=== PATIENT | male | born 1965 | race Caucasian/White ===

== ENCOUNTER 2019-12-14 07:44 | Outpatient (REF) | payer MEDICARE, MEDICAID, SELFPAY ==
[2019-12-14 12:05] LABS: Cholesterol 171 mg/dL; HDL Cholesterol 42 mg/dL; LDL Cholesterol Calculated 113 mg/dl; Triglycerides 83 mg/dL
== END 2019-12-14 07:45 | disposition home or self-care (01) ==
LOC: HO.HMGCLDS 07:44
PROVIDERS: PCP Internal Medicine; Visit Provider Internal Medicine
DX: E78.00 Pure hypercholesterolemia, unspecified (principal); Z00.01 Encounter for general adult medical examination with abnormal findings
CPT/HCPCS: 80061

== ENCOUNTER 2021-02-08 18:47 | Outpatient (REF) | payer MEDICARE, MEDICAID, SELFPAY ==
[2021-02-08 19:42] LABS: Influenza A PCR NEGATIVE (Negative); Influenza B PCR NEGATIVE (Negative); Resp Syncy Virus RNA Qual PCR NEGATIVE (Negative); SARS COV2 PCR INHOUSE POSITIVE (Negative)
== END 2021-02-08 18:48 | disposition home or self-care (01) ==
LOC: HO.LNP 18:47
PROVIDERS: Visit Provider Internal Medicine
DX: Z20.822 Contact with and (suspected) exposure to COVID-19 (principal); R43.9 Unspecified disturbances of smell and taste
CPT/HCPCS: 0241U

== ENCOUNTER 2022-02-24 08:15 | Outpatient (REF) | payer MEDICARE, MEDICAID, SELFPAY ==
[2022-02-24 12:19] LABS: Alanine Aminotransferase 15 U/L (0-40); Aspartate Amino Transferase 15 U/L (5-37); Cholesterol 207 mg/dL; Glucose Fasting 87 mg/dL (60-99); HDL Cholesterol 33 mg/dL; LDL Cholesterol Calculated 152 mg/dl; PSA,Total (Free>4and<10) 0.62 ng/mL (0.00-4.00); Triglycerides 114 mg/dL
== END 2022-02-24 08:16 | disposition home or self-care (01) ==
LOC: HO.HMGCLDS 08:15
PROVIDERS: PCP Internal Medicine; Visit Provider Internal Medicine
DX: Z00.01 Encounter for general adult medical examination with abnormal findings (principal); Z12.5 Encounter for screening for malignant neoplasm of prostate; F20.1 Disorganized schizophrenia; B35.1 Tinea unguium
CPT/HCPCS: 36415; 80061; 82947; 84153; 84450; 84460

== ENCOUNTER 2022-08-27 08:27 | Outpatient (REF) | payer MEDICARE, MEDICAID, SELFPAY ==
[2022-08-27 12:17] LABS: Alanine Aminotransferase 15 U/L (0-40); Aspartate Amino Transferase 19 U/L (5-37); Cholesterol 211 mg/dL; Glucose Fasting 89 mg/dL (60-99); HDL Cholesterol 41 mg/dL; LDL Cholesterol Calculated 150 mg/dl; Triglycerides 103 mg/dL; Vitamin D 25-OH Total 67.7 ng/mL (>30)
== END 2022-08-27 08:28 | disposition home or self-care (01) ==
LOC: HO.HMGCLDS 08:27
PROVIDERS: PCP Internal Medicine; Visit Provider Internal Medicine
DX: Z00.01 Encounter for general adult medical examination with abnormal findings (principal); E78.5 Hyperlipidemia, unspecified; Z71.89 Other specified counseling
CPT/HCPCS: 36415; 80061; 82306; 82947; 84450; 84460

== ENCOUNTER 2022-09-05 06:40 | Day surgery (SDC) | payer MEDICARE, MEDICAID, SELFPAY ==
--- NOTE | 2022-09-04 09:59 | HO.ANESPROP2 ---
HPI - Anesthesia Eval Consult details Narrative: 57yo M for Colonoscopy PMFSH Active Problems Active Problems: All Active Problems (Updated 02/28/22 @ 10:42 by Chantell Meyer MD) Dyslipidemia (Acute) Fungal toenail infection (Acute) Schizophrenia, disorganized type (Acute) Past Medical History Medical History Dyslipidemia Fungal toenail infection Schizophrenia, disorganized type Family History Family History Mother Diabetes mellitus HTN (hypertension) Sister Thyroid disorder Surgical History Surgical History No pertinent past surgical history Social History Social History Housing: House Alcohol intake: never Patient Tobacco Use Status: Never used Tobacco e-Cigarette/Vaping Use: Never Used service: No Current occupational status: employed Cognitive needs: No Hearing needs: No Vision needs: No Meds Allergies Allergy/AdvReac Type Severity Reaction Status Date / Time No Known Allergies Allergy Verified 09/01/22 03:36 [No Known Allergies*] Home Medications Medication Instructions Recorded Confirmed Last Taken Type clonidine HCl 0.1 mg tablet mg PO 12/14/19 05/13/20 Unknown History risperidone 1 mg tablet mg PO 12/14/19 05/13/20 Unknown History Exam Exam Date and Time: September 04, 2022 5790 Assessment and Plan Assessment Anesthesia Assessment: Chart Reviewed
[2022-09-05 07:10] VITALS: BP 100/66; PULSE 77; RESP 16; TEMP 36.9; O2SAT 98; BMI 22.9
[2022-09-05] MEDS: Lactated Ringers 1,000 ML 100 ML IVCONT (08:10)
--- NOTE | 2022-09-05 08:14 | P.CONAN_ITS ---
[facility] Active Problems Active Problems: All Active Problems (Updated 02/28/22 @ 10:42 by Chantell Meyer MD) Dyslipidemia (Acute) Fungal toenail infection (Acute) Schizophrenia, disorganized type (Acute) Past Medical History Medical History Dyslipidemia Fungal toenail infection Schizophrenia, disorganized type Family History Family History Mother Diabetes mellitus HTN (hypertension) Sister Thyroid disorder Surgical History Surgical History (Updated 09/05/22 @ 07:23 by Kaylen Buchanan) H/O colonoscopy No pertinent past surgical history History of Problems with Anesthesia: No Social History Social History Housing: House Alcohol intake: never Patient Tobacco Use Status: Never used Tobacco e-Cigarette/Vaping Use: Never Used Use of substances other than those prescribed or required for medical reasons: No Are you DNR?: No Advance Directives: No Advance Directives Information Provided: Yes service: No Current occupational status: employed Cognitive needs: No Hearing needs: No Vision needs: No Meds Allergies Allergy/AdvReac Type Severity Reaction Status Date / Time No Known Allergies Allergy Verified 09/05/22 07:23 [No Known Allergies*] Active Medications: Current Medications Lactated Ringer's (Lr) 1,000 mls @ 100 mls/hr IVCONT .Q10H BATOOL Last Admin: 09/05/22 08:10 Dose: 100 mls/hr Ondansetron HCl (Ondansetron Hcl 4 Mg/2 Ml Vial) 4 mg IVPUSH ONCE PRN PRN Reason: Nausea and Vomiting Home Medications Medication Instructions Recorded Confirmed Last Taken Type clonidine HCl 0.1 mg tablet mg PO 12/14/19 05/13/20 09/05/22 History risperidone 1 mg tablet mg PO 12/14/19 05/13/20 09/05/22 History Exam Exam Date and Time: September 05, 2022 0814 Height,Weight and Vital Signs: Height 5 ft 7 in Weight 66.224 kg Last Vital Signs Temp 98.4 F 09/05/22 07:10 Pulse 77 09/05/22 07:10 Resp 16 09/05/22 07:10 BP 100/66 06/30/23 07:10 Pulse Ox 98 09/05/22 07:10 O2 Del Method Room Air 09/05/22 07:10 Airway Mallampati Class: II TM Dist: >3cm Neck ROM: Full Denture: Upper and Lower Heart: rrr Lungs: clear Assessment and Plan Final Anesthetic Review History of Problems with Anesthesia: No NPO: Yes ASA Class: II Final Preanesthetic Review: No Changes in Pt Med Stat, Meds/Allgs Chart Reviewed, Consent Obtained/Reviewed and Anes Risks/Benef Reviewed Patient Risk: Low Procedure Risk: Low Anesthetic Plan Anesthetic Plan: MAC: Disposition: Standard PACU
--- NOTE | 2022-09-05 08:18 | MHC.SHP ---
Pre-Procedural Eval Section A Date of Service: 09/05/22 Section B Chief Complaint: Screening Details of Present Illness: see H&P no changes Relevant Family History (Specify if Yes): No Relevant Social History: None Present Medications: None Medical History: No relevant PMH History of Previous Operations: No relevant previous surgery Allergies: Allergies Allergy/AdvReac Type Severity Reaction Status Date / Time No Known Allergies Allergy Verified 09/05/22 07:23 [No Known Allergies*] Review of Systems Sugical H&P ROS: Negative: Constitution, Cardiovascular, Respiratory, Neurological, Psychiatric, Hem-Onc, Allergic/Immunologic, Gastrointestinal, Genitourinary, Musculoskeletal, Integumentary, Endocrine and Eyes/Ears/Nose/Throat Exam Surgical H&P Exam: Normal: HEENT, Normal: Heart, Normal: Lungs, Normal: Extremities, Normal: Abdomen, Normal: Skin and Normal: Neurological Plan Diagnosis/Plan: Unchanged I have reviewed the history and physical and performed a pertinent physical examination on my patient. No changes have occurred unless specified. Time Spent With Patient Time: Total time managing care of this patient today ____ minutes.
--- NOTE | 2022-09-05 08:26 | PC.NURSE ---
Legal guardian/HCP/brother Ryan Chua at bedside. HCP on file. Patient alert to name and some health history. Unable to state birthday or what he is getting done today. Hx of schizophrenia and mental disability. Ryan to sign all consents for patient.
[2022-09-05 08:52] VITALS: BP 108/71; PULSE 69; RESP 16; TEMP 36.6; O2SAT 97
--- NOTE | 2022-09-05 08:56 | PM.OP ---
Brief Operative Note Date of Service: 09/05/22 Pre-op diagnosis: screening Procedure: colonoscopy Surgeon: Floyd Au Anesthesia: MAC Was an Nerve Specialist used for this Procedure?: No Estimated blood loss (mL): 0 Pathology: none sent Condition: stable Disposition: PACU
[2022-09-05 09:08] VITALS: BP 125/72; PULSE 70; RESP 16; TEMP 36.6; O2SAT 99
--- NOTE | 2022-09-05 09:15 | OP_ITS ---
DATE OF SERVICE: 09/05/2022 SURGEON: Floyd Au MD INDICATIONS: Colon cancer screening. PREOPERATIVE DIAGNOSIS: POSTOPERATIVE DIAGNOSIS: PROCEDURE PERFORMED: Colonoscopy to 70 cm. ESTIMATED BLOOD LOSS: COMPLICATIONS: ANESTHESIA: Monitored anesthesia care. ASSISTANTS: SPECIMENS: DESCRIPTION OF PROCEDURE: A history and physical were performed. The risks and benefits of the procedure were explained to the patient and his guardian. Informed consent was obtained. The patient was placed in the left lateral decubitus position. A digital rectal examination was performed and was found to be normal. The Olympus pediatric video colonoscope was introduced into the rectum. The scope could be advanced to 70 cm but no further due to a poor prep. Examination was performed and the scope was removed. He tolerated the procedure well and was taken to recovery in stable condition. FINDINGS: There was a large amount of undigested food, retained stool, which was both solid and liquid in the colon. Examination was nondiagnostic. The scope was removed. No polyps were seen. Retroflexed examination showed some internal hemorrhoids. IMPRESSION: Nondiagnostic procedure. RECOMMENDATIONS: 1. Followup as needed. 2. Repeat colonoscopy with 2-day prep is recommended. This will be discussed with the patient and his guardian. MD FAUSTO Cornelius/KATIEL / [id number]
== END 2022-09-05 09:58 | disposition home or self-care (01) ==
PROVIDERS: PCP Internal Medicine; Visit Provider Internal Medicine Gastroenterology
PROC: 0DJD8ZZ Inspection of Lower Intestinal Tract, Via Natural or Artificial Opening Endoscopic (ICD-10-PCS; CPT 45378; principal; 2022-09-05 08:10)
DX: Z12.11 Encounter for screening for malignant neoplasm of colon (principal); K64.8 Other hemorrhoids; F71 Moderate intellectual disabilities; F20.9 Schizophrenia, unspecified; E78.5 Hyperlipidemia, unspecified; Z79.899 Other long term (current) drug therapy
CPT/HCPCS: G0104

== ENCOUNTER 2023-03-05 13:14 | Outpatient (AMB) | payer MEDICARE, MEDICAID, SELFPAY ==
[2023-03-05 13:23] VITALS: BP 108/60; PULSE 63; O2SAT 99; BMI 23.5
--- NOTE | 2023-03-05 13:23 | AM.OFFVISMDC ---
Intake Vital Signs 03/05/23 13:23 Height 5 ft 7 in Intake Visit Reasons: AWV [id number] Allergies No Known Allergies [No Known Allergies*] Allergy (Verified 09/05/22 07:23) PFSH Medical History Dyslipidemia Fungal toenail infection Schizophrenia, disorganized type Surgical History (Updated 09/05/22 @ 07:23 by Kaylen Buchanan) H/O colonoscopy No pertinent past surgical history Family History Mother Diabetes mellitus HTN (hypertension) Sister Thyroid disorder Social History Housing: House Alcohol intake: never Patient Tobacco Use Status: Never used Tobacco e-Cigarette/Vaping Use: Never Used service: No Current occupational status: employed Cognitive needs: No Hearing needs: No Vision needs: No Coding
--- NOTE | 2023-03-05 13:39 | MHC.PC.OV ---
Vital Signs 03/05/23 13:23 Height 5 ft 7 in Weight 150 lb 6 oz BMI 23.5 BP 108/60 Blood Pressure Location Lt brachial Position Sitting Pulse 63 Pulse Source Pulse Oximeter Pulse Oximetry (%) 99 Intake Visit Reasons: Annual PE Intake Note: Pt is here for an Annual PE Allergies No Known Allergies [No Known Allergies*] Allergy (Verified 03/05/23 14:13) Medication List - Last Reconciled 03/05/23 by Chantell Meyer MD clonidine HCl mg PO risperidone mg PO Tobacco use date assessed: 08/29/22 HPI Annual PE HPI Details 57-year-old male here today for physical exam. He has schizophrenia currently being followed by psych, stable and controlled on present medications. He is up-to-date with his screening colonoscopy however his last 1 had a poor prep, as per GI, to repeat again in 2024. 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 Has been feeling well, with no complaints at present time, very happy with his current job. [facility] [place] Medical History (Updated 03/05/23 @ 14:22 by Chantell Meyer MD) Impacted cerumen of both ears Dyslipidemia Fungal toenail infection Schizophrenia, disorganized type Surgical History H/O colonoscopy No pertinent past surgical history Family History Mother Diabetes mellitus HTN (hypertension) Sister Thyroid disorder Social History Housing: House Alcohol intake: never Patient Tobacco Use Status: Never used Tobacco e-Cigarette/Vaping Use: Never Used service: No Current occupational status: employed Cognitive needs: No Hearing needs: No Vision needs: No Questionnaire PHQ-9 Over the last 2 weeks, how often have you been bothered by any of the following problems? 1. Little interest or pleasure in doing things: not at all 2. Feeling down, depressed, or hopeless: not at all 3. Trouble falling or staying asleep, or sleeping too much: not at all 4. Feeling tired or having little energy: not at all 5. Poor appetite or overeating: not at all 6. Feeling bad about yourself - or that you are a failure or have let yourself or your family down: not at all 7. Trouble concentrating on things, such as reading the newspaper or watching television: not at all 8. Moving or speaking so slowly that other people could have noticed. Or the opposite - being so fidgety or restless that you have been moving around a lot more than usual: not at all 9. Thoughts that you would be better off or of hurting yourself in some way: not at all Total score: 0 Depression Screening Interpretation: Negative Depression Screening Done: Yes 78692 - PHQ-9 Billing: Yes Source: Developed by Drs. Pablo Garcia, Lynn Holliday, Jorge Raya and colleagues, with an educational willa from [employer]. Thrive Questionnaire Date Thrive assessed: 03/05/23 I am a: Patient What is your living situation today?: I have a steady place to live Within the past 12 months, did the food you bought not last and you didn't have the money to get more?: Never true Within the past 12 months, did you worry whether your food would run out before you got money to buy more?: Never true Do you have trouble paying for medicines?: No Do you have trouble getting transportation to medical appointments?: No Do you have trouble paying your heating and electricity bill?: No Do you have trouble taking care of your child, family member or friend?: No Do you have trouble with day-to-day activities such as bathing, preparing meals, shopping, managing finances, etc.?: No Are you currently unemployed and looking for a job?: No Are you interested in more education?: No AUDIT C Alcohol Use Questionnaire (AUDIT-C) 1. How often do you have a drink containing alcohol?: Never Total Score: 0 MARY KATE-7 AMB Questionnaire MARY KATE-7 Date MARY KATE - 7 assessed: 03/05/23 Feeling nervous, anxious, or on edge: 0 = Not at all Not being able to stop or control worryin = Not at all Worrying too much about different things: 0 = Not at all Trouble relaxin = Not at all Being so restless that it is hard to sit still: 0 = Not at all Becoming easily annoyed or irritable: 0 = Not at all Feeling afraid as if something awful might happen: 0 = Not at all Total MARY KATE-7 score (0-4 normal; 5-9 mild; 10-14 moderate; 15-21 severe): 0 Source: Developed by Drs. Pablo Garcia, Lynn Holliday, Jorge Raya and colleagues, with an educational willa from [employer]. MARY KATE-7 Assessment Billing MARY KATE-7 Assessment Tool: MARY KATE-7 Assessment 80047 Review of Systems Const Denies body aches, Denies fatigue, Denies fever(s), Denies headache(s) and Denies weakness Eyes Denies change in vision, Denies eye discharge and Denies itchy eyes ENT Denies dizziness, Denies headache(s), Denies nasal congestion, Denies nasal discharge and Denies sore throat Card Denies chest pain, Denies lightheadedness, Denies palpitations and Denies dyspnea Resp Denies chest congestion, Denies cough, Denies dyspnea and Denies wheezing GI Denies abdominal pain, Denies change in bowel habits and Denies heartburn Denies dysuria, Denies urinary frequency and Denies urinary urgency Musc Denies abnormal gait, Denies back pain, Denies myalgias, Denies arthralgias and Denies joint swelling Skin/Breast Denies lesions and Denies rash Neuro Reports Abnormal speech present, Denies abnormal gait, Denies dizziness, Denies headache(s) and Denies weakness Psych Reports as per HPI Endo Denies fatigue, Denies polydipsia, Denies polyuria and Denies palpitations Davi/Lymph Denies easy bruising Aller/Immun Denies itchy eyes, Denies seasonal rhinorrhea and Denies wheezing Physical exam (Primary Care) Vital Signs: Last Vital Signs Pulse 63 03/05/23 13:23 BP 108/60 03/05/23 13:23 Pulse Ox 99 03/05/23 13:23 BMI result Body Mass Index 23.5 Tobacco/Smoking Status: Tobacco use Status Tobacco use date assessed 08/29/22 03/05/23 13:40 Patient Tobacco Use Status Never used Tobacco 03/05/23 13:40 e-Cigarette/Vaping Use Never Used 03/05/23 13:40 Depression Screening Interpretation: Negative Const Other: Alert oriented x3, pleasant, in no acute distress, and accompanied by brother General: healthy appearing, comfortable and no acute distress Nutritional Appearance: average body habitus Orientation/consciousness: patient oriented x3 [facility] Head: Yes normocephalic Ears: external ears normal and Abnormal EAC present excessive cerumen bilateral General nose exam: Normal external nose present and No nasal discharge present Face and sinus: Yes face symmetric Mouth: Normal oral and palatal mucosa present and moist mucous membranes Eyes General: appearance normal, both eyes and all related structures Neck Neck: Yes full ROM, Yes no lymphadenopathy and Yes supple Thyroid: Thyroid normal Resp Effort & Inspection: normal respiratory effort and able to speak in complete sentences Auscultation: clear to auscultation bilaterally Cardio Rate: regular rate Rhythm: regular rhythm Heart sounds: S1 normal heart sound present and S2 normal heart sound present Bruits: no abdominal aortic bruits GI Inspection: Yes normal to inspection Palpation (GI): No Abdominal aortic bruit present, Soft to palpation, nontender and no masses Auscultation: normal bowel sounds General: Yes no CVA tenderness Male General Exam: Yes normal external exam Penis: normal penis and circumcised Meatus: meatus normal Scrotum: scrotum normal Testes: Testes normal, no testicular mass and no testicular tenderness Back/Spine/Pelvis Back: no CVA tenderness and No back tenderness Skin General skin exam: no rashes or lesions noted Neuro General: patient oriented x3, moves all extremities, Normal light touch and pain sensation and no focal motor deficits Cranial nerves: Yes CN's II-XII intact bilaterally Speech: Abnormal speech present slurred Gait exam (Neuro): Normal gait present Motor exam (neuro): 5/5 motor strength present throughout Extrem General: Yes full ROM, Yes no joint enlargement, Yes no clubbing, cyanosis or edema and Yes normal gait Psych Appearance: grossly normal and well kempt Mental Status: mental status grossly normal Speech and movement: Slurred speech present Affect: normal affect Attitude: cooperative Assessment and Plan Assessment & Plan (1) Annual visit for general adult medical examination with abnormal findings: Code(s): Z00.01 - Encounter for general adult medical examination with abnormal findings Plan: Will check appropriate labs. Continue regular dental visit every 6 months and regular eye exams, at least every 2 years. Declines vaccinations pain up-to-date with screening colonoscopy however last 1 had a poor prep, but as per his GI, to repeated again in 2024. (2) Dyslipidemia: Code(s): E78.5 - Hyperlipidemia, unspecified Plan: Fasting lipid panel ordered, encouraged to adhere to a low-cholesterol diet, continue doing regular exercise (3) Schizophrenia, disorganized type: Comment: followed by psychiatrist Dr. Rivas Code(s): F20.1 - Disorganized schizophrenia Plan: Currently followed by psychiatry (4) Impacted cerumen of both ears: Code(s): H61.23 - Impacted cerumen, bilateral Plan: Attended cerumen cerumen by lighted curette but unable to do so, will schedule for ear irrigation Orders: Orders Alanine Aminotransferase Today E78.5 - Hyperlipidemia, unspecified, Z00.01 - Encounter for general adult medical examination with abnormal findings, Z12.5 - Encounter for screening for malignant neoplasm of prostate, Z13.1 - Encounter for screening for diabetes mellitus Basic Metabolic Panel Fasting Today E78.5 - Hyperlipidemia, unspecified, Z00.01 - Encounter for general adult medical examination with abnormal findings, Z12.5 - Encounter for screening for malignant neoplasm of prostate, Z13.1 - Encounter for screening for diabetes mellitus Lipid Panel Today E78.5 - Hyperlipidemia, unspecified, Z00.01 - Encounter for general adult medical examination with abnormal findings, Z12.5 - Encounter for screening for malignant neoplasm of prostate, Z13.1 - Encounter for screening for diabetes mellitus Aspartate Amino Transferase Today E78.5 - Hyperlipidemia, unspecified, Z00.01 - Encounter for general adult medical examination with abnormal findings, Z12.5 - Encounter for screening for malignant neoplasm of prostate, Z13.1 - Encounter for screening for diabetes mellitus PSA,Total (Free>4and<10) Today E78.5 - Hyperlipidemia, unspecified, Z00.01 - Encounter for general adult medical examination with abnormal findings, Z12.5 - Encounter for screening for malignant neoplasm of prostate, Z13.1 - Encounter for screening for diabetes mellitus Coding Level of Care Code Est Pt Prev Care 40-64y(12063) Diagnoses Annual visit for general adult medical examination with abnormal findings Z00.01 Dyslipidemia E78.5 Schizophrenia, disorganized type F20.1 Impacted cerumen of both ears H61.23 Additional Codes MARY KATE-7 Assessment Billing - MARY KATE-7 Assessment Tool: MARY KATE-7 Assessment [id number] ([id number])
== END 2023-03-05 14:04 | disposition home or self-care (01) ==
PROVIDERS: PCP Internal Medicine; Visit Provider Internal Medicine
DX: Z00.00 Encounter for general adult medical examination without abnormal findings (principal); E78.5 Hyperlipidemia, unspecified; F20.1 Disorganized schizophrenia; H61.23 Impacted cerumen, bilateral
CPT/HCPCS: 99396

== ENCOUNTER 2023-03-17 07:12 | Outpatient (REF) | payer MEDICARE, MEDICAID, SELFPAY ==
[2023-03-17 11:55] LABS: Alanine Aminotransferase 21 U/L (0-40); Anion Gap 11 (12-20); Aspartate Amino Transferase 25 U/L (5-37); Blood Urea Nitrogen 13 mg/dL (9-16); Calcium 9.6 mg/dL (8.4-10.2); Carbon Dioxide 26 mmol/L (22-29); Chloride 104 mmol/L (96-108); Cholesterol 177 mg/dL (<200); Estimated Glomerular Filt Rate > 60; Glucose Fasting 87 mg/dL (60-99); HDL Cholesterol 40 mg/dL (>40); LDL Cholesterol Calculated 126 mg/dL (<100); Potassium 3.8 mmol/L (3.3-5.1); Sodium 137 mmol/L (135-145); Triglycerides 59 mg/dL (<150)
[2023-03-17 12:31] LABS: PSA,Total (Free>4and<10) 0.62 ng/mL (0.00-4.00)
== END 2023-03-17 07:13 | disposition home or self-care (01) ==
LOC: HO.HMGCLDS 07:12
PROVIDERS: PCP Internal Medicine; Visit Provider Internal Medicine
DX: Z00.01 Encounter for general adult medical examination with abnormal findings (principal); E78.5 Hyperlipidemia, unspecified; F20.1 Disorganized schizophrenia; Z13.1 Encounter for screening for diabetes mellitus; Z12.5 Encounter for screening for malignant neoplasm of prostate
CPT/HCPCS: 36415; 80048; 80061; 84153; 84450; 84460

== ENCOUNTER 2023-03-19 14:58 | Outpatient (AMB) | payer MEDICARE, MEDICAID, SELFPAY ==
[2023-03-19 15:05] VITALS: BP 110/62; PULSE 68; O2SAT 98; BMI 23.4
--- NOTE | 2023-03-19 15:06 | MHC.PC.OV ---
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: No Accompanied by: Self / Same As Patient Allergies No Known Allergies [No Known Allergies*] Allergy (Verified 03/19/23 15:36) Medication List - Last Reconciled 03/19/23 by Chantell Meyer MD clonidine HCl mg PO risperidone mg PO Tobacco use date assessed: 08/29/22 Dental Screening Dental Screen Date: 03/19/23 Did you have a dental visit in the last 12 months?: Yes Did you have a dental problem in the last 6 months where you did not have access to dental care?: No Was dental information given to patient?: Patient has dentist HPI Ear Cleaning HPI Details 57-year-old male here today accompanied by brother, complaining of difficulty hearing from both ears and occasional itching and discomfort. Denies any discharge coming from both ears. He is also here for follow-up on recent lab results. 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 [facility] Medical History Impacted cerumen of both ears Dyslipidemia Fungal toenail infection Schizophrenia, disorganized type Surgical History H/O colonoscopy No pertinent past surgical history Family History Mother Diabetes mellitus HTN (hypertension) Sister Thyroid disorder Social History Housing: House Alcohol intake: never Patient Tobacco Use Status: Never used Tobacco e-Cigarette/Vaping Use: Never Used service: No Current occupational status: employed Cognitive needs: No Hearing needs: No Vision needs: No Questionnaire Thrive Questionnaire Date Thrive assessed: 03/05/23 MARY KATE-7 AMB Questionnaire MARY KATE-7 Date MARY KATE - 7 assessed: 03/05/23 Source: Developed by Drs. Pablo LLynn Buenrostro, Jorge Raya and colleagues, with an educational willa from [employer]. Review of Systems Const All systems reviewed & are unremarkable except as noted in HPI and below Denies body aches, Denies headache(s) and Denies weakness ENT Denies dizziness, Denies headache(s), Denies nasal congestion, Denies nasal discharge and Denies sore throat Card Denies chest pain, Denies lightheadedness and Denies dyspnea Resp Denies chest congestion, Denies cough and Denies dyspnea GI Denies abdominal pain, Denies change in bowel habits and Denies heartburn Neuro Denies dizziness, Denies headache(s) and Denies weakness Physical exam (Primary Care) Vital Signs: Last Vital Signs Pulse 68 03/19/23 15:05 BP 110/62 03/19/23 15:05 Pulse Ox 98 03/19/23 15:05 BMI result Body Mass Index 23.4 Tobacco/Smoking Status: Tobacco use Status Tobacco use date assessed 08/29/22 03/19/23 15:07 Patient Tobacco Use Status Never used Tobacco 03/19/23 15:07 e-Cigarette/Vaping Use Never Used 03/19/23 15:07 Thrive Assessment: Date of Thrive Assessment Date Thrive assessed 03/05/23 03/19/23 15:07 Const Other: Alert oriented x3, no acute distress noted ambulatory normal gait, accompanied by brother HENMT Ears: external ears normal and Abnormal EAC present cerumen impaction bilateral Neck Neck: Yes full ROM, Yes no lymphadenopathy and Yes supple Resp Auscultation: clear to auscultation bilaterally Cardio Rate: regular rate Rhythm: regular rhythm Heart sounds: S1 normal heart sound present and S2 normal heart sound present Results Reviewed Results Reviewed: Name: Dharmesh Chua Age/Sex: 57/M : 1965 Unit#: [id number] Attend Dr: Chantell Meyer MD Re03/17/23 Status: DEP REF Location: [facility] Disch: SPEC : [id number] HELEN: 03/17/23 STATUS: COMP REQ : [id number] RECD: 03/17/23-[address]: Chantell Meyer MD COMP: 03/17/23-1154 ENTERED: 03/17/[address] [facility] [address]: ORDERED: Met Prof Fast, AST, ALT, Lipid Panel Test Result Flag Reference Site Sodium 137 135-145 mmol/L Potassium 3.8 3.3-5.1 mmol/L CL 104 96-108 mmol/L CO2 26 22-29 mmol/L Gap 11 L 12-20 BUN 13 9-16 mg/dL Creat 0.79 0.5-1.4 mg/dL EGFR > 60 NOTE: For -[place] individuals, multiply the result by 1.210. Chronic Kidney Disease: Estimated GFR < 60 mL/min/1.73m2 Severe Kidney Disease: Estimated GFR < 15 mL/min/1.73m2 FBS 87 60-99 mg/dL CA 9.6 8.4-10.2 mg/dL AST (GOT) 25 5-37 U/L ALT (GPT) 21 0-40 U/L Triglyceride 59 <150 mg/dL Desirable Triglyceride: less than 150 mg/dL Borderline High Triglyceride 150-199 mg/dL High Triglyceride: 200-499 mg/dL Very High Triglyceride: greater than or equal to 5OO mg/dL Cholesterol 177 <200 mg/dL Desirable Cholesterol: less than 200 mg/dL Borderline High Cholesterol: 200-239 mg/dL High Cholesterol: greater than 239 mg/dL LDL Calculated 126 H <100 mg/dL Desirable LDL: less than 100 mg/dL Near Optimal/Above Optimal LDL: 110-129 mg/dL Borderline High LDL: 130-159 mg/dL High LDL: 160-189 mg/dL Very High LDL: greater than or equal to 190 mg/dL HDL 40 L >40 mg/dL Desirable HDL: greater than 40 mg/dL Note: This HDL assay may give artificially low results in patients with liver disease. Assessment and Plan Assessment & Plan (1) Impacted cerumen of both ears: Code(s): H61.23 - Impacted cerumen, bilateral Plan: Successful removal of cerumen both from both ears done through ear lavage and manual removal of cerumen with lighted curette. Avoid putting any Q-tips inside both ears. (2) Dyslipidemia: Code(s): E78.5 - Hyperlipidemia, unspecified Plan: Reviewed recent fasting lipid profile with patient with levels now within normal . Continue with adherence to low-cholesterol diet and regular exercise, at least 30 minutes 3 to 4 times a week. Advised patient to make healthy food choices, eat more fruits, vegetables, whole grains, wild caught fish and low-fat dairy. Limit amount of meat and fried or fatty food products, as well as processed foods and fast foods. Coding Level of Care Code Est Pt Level 3 (61378) Diagnoses Impacted cerumen of both ears H61.23 Dyslipidemia E78.5
== END 2023-03-19 15:43 | disposition home or self-care (01) ==
PROVIDERS: PCP Internal Medicine; Visit Provider Internal Medicine
DX: H61.23 Impacted cerumen, bilateral (principal); E78.5 Hyperlipidemia, unspecified
CPT/HCPCS: 99213

== ENCOUNTER 2024-04-13 09:30 | Outpatient (AMB) | payer MEDICARE, MEDICAID, SELFPAY ==
--- NOTE | 2024-04-13 09:40 | A.OFFPC_ITS ---
Vital Signs 04/13/24 09:42 Height 5 ft 6 in Weight 144 lb BMI 23.2 BP 100/68 Blood Pressure Location Lt brachial Position Sitting Respiration 14 Pulse 79 Pulse Source Pulse Oximeter Temp 98.0 F Temp Source Oral Pulse Oximetry (%) 99 Intake Visit Reasons: Annual PE/Provider out 03/18/24 Intake Note: Pt is here today for his PE Allergies No Known Allergies [No Known Allergies*] Allergy (Verified 04/13/24 10:17) Medication List - Last Reconciled 04/13/24 by Chantell Meyer MD clonidine HCl mg PO risperidone mg PO Tobacco use date assessed: 04/13/24 Dental Screening Dental Screen Date: 04/13/24 Did you have a dental visit in the last 12 months?: No Did you have a dental problem in the last 6 months where you did not have access to dental care?: No Was dental information given to patient?: No HPI Annual PE/Provider out 03/18/24 HPI Details 58 year old male with history of schizop hrenia currently being followed by Dr Pool, stable and controlled on present medications, here today for his Physical examination He is up-to-date with his screening colonoscopy howeverhe had a poor prep in 2023, as per GI, to repeat again in 2024. 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 Has hypertrophic thickened toenails, previously was being seen by Dr. Escobar, needs a referral to a new kiln firer. Up-to-date with his flu vaccine, shingles vaccine and Tdap, but does not want to get COVID vaccine. [facility] Medical History (Updated 04/13/24 @ 10:21 by Chantell Meyer MD) Hypertrophic toenail Dyslipidemia Fungal toenail infection Schizophrenia, disorganized type Surgical History H/O colonoscopy No pertinent past surgical history Family History Mother Diabetes mellitus HTN (hypertension) Sister Thyroid disorder Social History Housing: House Alcohol intake: never Patient Tobacco Use Status: Never used Tobacco e-Cigarette/Vaping Use: Never Used service: No Current occupational status: employed Cognitive needs: No Hearing needs: No Vision needs: No Questionnaire PHQ-9 Over the last 2 weeks, how often have you been bothered by any of the following problems? 1. Little interest or pleasure in doing things: not at all 2. Feeling down, depressed, or hopeless: not at all 3. Trouble falling or staying asleep, or sleeping too much: not at all 4. Feeling tired or having little energy: not at all 5. Poor appetite or overeating: not at all 6. Feeling bad about yourself - or that you are a failure or have let yourself or your family down: not at all 7. Trouble concentrating on things, such as reading the newspaper or watching television: not at all 8. Moving or speaking so slowly that other people could have noticed. Or the opposite - being so fidgety or restless that you have been moving around a lot more than usual: not at all 9. Thoughts that you would be better off or of hurting yourself in some way: not at all Total score: 0 Depression Screening Interpretation: Negative Depression Screening Done: Yes 17981 - PHQ-9 Billing: Yes Source: Developed by Drs. Pablo Garcia, Lynn Holliday, Jorge Raya and colleagues, with an educational willa from [employer]. Thrive Questionnaire Date Thrive assessed: 04/13/24 I am a: Parent/Caregiver What is your living situation today?: I have a steady place to live Within the past 12 months, did the food you bought not last and you didn't have the money to get more?: Never true Within the past 12 months, did you worry whether your food would run out before you got money to buy more?: Never true Do you have trouble paying for medicines?: No Do you have trouble getting transportation to medical appointments?: No Do you have trouble paying your heating and electricity bill?: No Do you have trouble taking care of your child, family member or friend?: No Do you have trouble with day-to-day activities such as bathing, preparing meals, shopping, managing finances, etc.?: No Are you currently unemployed and looking for a job?: No Are you interested in more education?: No THRIVE Score: 0 AUDIT C Alcohol Use Questionnaire (AUDIT-C) 1. How often do you have a drink containing alcohol?: Never Total Score: 0 MARY KATE-7 AMB Questionnaire MARY KATE-7 Date MARY KATE - 7 assessed: 04/13/24 Feeling nervous, anxious, or on edge: 0 = Not at all Not being able to stop or control worryin = Not at all Worrying too much about different things: 0 = Not at all Trouble relaxin = Not at all Being so restless that it is hard to sit still: 0 = Not at all Becoming easily annoyed or irritable: 0 = Not at all Feeling afraid as if something awful might happen: 0 = Not at all Total MARY KATE-7 score (0-4 normal; 5-9 mild; 10-14 moderate; 15-21 severe): 0 Source: Developed by Drs. Pablo Garcia, Lynn Holliday, Jorge Raya and colleagues, with an educational willa from [employer]. MARY KATE-7 Assessment Billing MARY KATE-7 Assessment Tool: MARY KATE-7 Assessment 82929 Review of Systems Const Denies body aches, Denies difficulty sleeping, Denies fatigue, Denies headache(s), Denies poor appetite and Denies weakness Eyes Reports no additional complaints ENT Denies dizziness, Denies headache(s), Denies nasal congestion, Denies nasal discharge and Denies sore throat Card Denies chest pain, Denies lightheadedness and Denies dyspnea Resp Denies chest congestion, Denies cough and Denies dyspnea GI Denies abdominal pain, Denies change in bowel habits and Denies heartburn Reports no additional complaints Musc Reports no additional complaints Skin/Breast Denies rash Neuro Denies dizziness, Denies headache(s) and Denies weakness Psych Details: Followed by Efren Pool Reports as per HPI Endo Denies fatigue, Denies polydipsia and Denies polyuria Davi/Lymph Reports no additional complaints Aller/Immun Reports no additional complaints Physical exam (Primary Care) Vital Signs: Last Vital Signs Temp 98.0 F 04/13/24 09:42 Pulse 79 04/13/24 09:42 Resp 14 04/13/24 09:42 BP 100/68 04/13/24 09:42 Pulse Ox 99 04/13/24 09:42 BMI result Body Mass Index 23.2 Tobacco/Smoking Status: Tobacco use Status Tobacco use date assessed 04/13/24 04/13/24 09:46 Patient Tobacco Use Status Never used Tobacco 04/13/24 09:46 e-Cigarette/Vaping Use Never Used 04/13/24 09:46 PHQ-9: PHQ-9 Score PHQ-9: Total score 0 04/13/24 09:54 Depression Screening Interpretation: Negative Thrive Assessment: Date of Thrive Assessment Date Thrive assessed 04/13/24 04/13/24 09:47 Const Other: Alert oriented x3, no acute distress noted ambulatory normal gait, accompanied by brother Orientation/consciousness: patient oriented x3 HENMT Head: Yes normocephalic Ears: external ears normal General nose exam: Normal external nose present Face and sinus: Yes face symmetric Mouth: Normal oral and palatal mucosa present, oropharynx normal and moist mucous membranes Eyes General: appearance normal, both eyes and all related structures Neck Neck: Yes full ROM, Yes no lymphadenopathy and Yes supple Chest Chest palpation & inspection: normal inspection of the chest Resp Auscultation: clear to auscultation bilaterally Cardio Rate: regular rate Rhythm: regular rhythm Heart sounds: S1 normal heart sound present and S2 normal heart sound present GI Inspection: Yes normal to inspection Palpation (GI): Soft to palpation, nontender, no guarding, no hernias and no masses Auscultation: normal bowel sounds General: Yes no CVA tenderness Back/Spine/Pelvis Back: no CVA tenderness and No back tenderness Skin General skin exam: no rashes or lesions noted Nails: yellow and thickened (toenails , bilateral) Neuro General: patient oriented x3, gait normal, moves all extremities and no focal motor deficits Gait exam (Neuro): Normal gait present Extrem General: Yes full ROM, Yes no joint enlargement, Yes no pedal edema and Yes normal gait Psych Appearance: grossly normal and well kempt Mental Status: mental status grossly normal Speech and movement: Normal speech and movement present Affect: normal affect Attitude: cooperative Thought process: Normal thought process present Thought content: Normal thought content present Coding Level of Care Code Est Pt Prev Care 40-64y(39377) Diagnoses Annual visit for general adult medical examination with abnormal findings Z00. 01 Dyslipidemia E78.5 Schizophrenia, disorganized type F20.1 Encounter for screening for malignant neoplasm of colon Z12.11 Hypertrophic toenail L60.2 Additional Codes PHQ-9 - 36526 - PHQ-9 Billing: Yes ([id number]) MARY KATE-7 Assessment Billing - MARY KATE-7 Assessment Tool: MARY KATE-7 Assessment 74358 ([id number]) Assessment & Plan Assessment & Plan (1) Annual visit for general adult medical examination with abnormal findings: Code(s): Z00.01 - Encounter for general adult medical examination with abnormal findings Plan: Will check appropriate labs. Recommended dental visit every 6 months and regular eye exams, at least every 2 years. Take adequate calcium in diet and vitamin-D 3 at 2000 IU per cap once a day, in addition to weight-bearing exercises to help maintain good muscle tone and weight control. Up-to-date with his vaccinations but does not want to get a COVID vaccine. Referred back to Dr. Au for a repeat screening colonoscopy due to poor prep in previous test in 2022 (2) Dyslipidemia: Code(s): E78.5 - Hyperlipidemia, unspecified Category: Medical Plan: Fasting lipid panel ordered, continue with adherence to healthy eating habits and regular exercise (3) Schizophrenia, disorganized type: Comment: followed by psychiatrist Dr. Rivas Code(s): F20.1 - Disorganized schizophrenia Category: Medical Plan: Stable and controlled on present treatment, currently followed by Dr Pool (4) Encounter for screening for malignant neoplasm of colon: Code(s): Z12.11 - Encounter for screening for malignant neoplasm of colon Plan: Referred to Dr. Au (5) Hypertrophic toenail: Code(s): L60.2 - Onychogryphosis Category: Medical Plan: Podiatry consult obtained with Dr. Dexter Keyes Orders: Orders Lipid Panel Today E78.5 - Hyperlipidemia, unspecified, F20.1 - Disorganized schizophrenia, Z00.01 - Encounter for general adult medical examination with abnormal findings, Z12.5 - Encounter for screening for malignant neoplasm of prostate Alanine Aminotransferase Today E78.5 - Hyperlipidemia, unspecified, F20.1 - Disorganized schizophrenia, Z00.01 - Encounter for general adult medical examination with abnormal findings, Z12.5 - Encounter for screening for malignant neoplasm of prostate Aspartate Amino Transferase Today E78.5 - Hyperlipidemia, unspecified, F20.1 - Disorganized schizophrenia, Z00.01 - Encounter for general adult medical examination with abnormal findings, Z12.5 - Encounter for screening for malignant neoplasm of prostate Basic Metabolic Panel Fasting Today E78.5 - Hyperlipidemia, unspecified, F20.1 - Disorganized schizophrenia, Z00.01 - Encounter for general adult medical e xamination with abnormal findings, Z12.5 - Encounter for screening for malignant neoplasm of prostate PSA,Total (Free>4and<10) Today E78.5 - Hyperlipidemia, unspecified, F20.1 - Disorganized schizophrenia, Z00.01 - Encounter for general adult medical examination with abnormal findings, Z12.5 - Encounter for screening for malignant neoplasm of prostate Referrals Gastroenterology Referral Z12.11 - Encounter for screening for malignant neoplasm of colon Podiatry Referral L60.2 - Onychogryphosis
[2024-04-13 09:42] VITALS: BP 100/68; PULSE 79; RESP 14; TEMP 36.7; O2SAT 99; BMI 23.2
--- OUTSIDE RECORDS SUMMARY | 2024-04-13 10:02 | XMS_ITS | Clinical Summary ---
Author Organization [facility] ity Address [address] [place] [address] Care Team Providers Care Junior Systems Administrator Name Role Phone Unavailable Primary Care Provider Unavailabl e Social History Tobacco Use Types Packs/Day Years Used Date Smoking Tobacco: Never Assessed Sex and Gender Information Value Date Recorded Sex Assigned at Not on file Gender Identity Not on file Sexual Orientation Not on file Plan of Treatment Health Maintenance Due Date Last Done Comments DTaP,Tdap,and Td Vaccines (1 - Tdap) 05/29/1982 Zoster Vaccines (1 of 2) 05/29/2013 COVID-19 Vaccine ( - 2023-2 5 season) 2023 Influenza Vaccine (#1) 2023 RSV Immunization Patients 60 + Years Old (1 - 1-dose 75+ series) 05/29/2038 HIB Vaccines Aged Out No longer eligi ble based on patient's age to complete this topic HPV Vaccines Aged Out No longer eligi ble based on patient's age to complete this topic Hepatitis A Vaccines Aged Out No long er eligible based on patient's age to complete this topic Hepatitis B Vaccines Aged Out No long er eligible based on patient's age to complete this topic IPV Vaccines Aged Out No longer eligi ble based on patient's age to complete this topic MMR Vaccines Aged Out No longer eligi ble based on patient's age to complete this topic Meningococcal ACWY Vaccine Aged Out N o longer eligible based on patient's age to complete this topic Pneumococcal Vaccine: Pediat rics (0 to 5 Years) and At-Risk Patients (6 to 64 Years) Aged Out No longer eligible b ased on patient's age to complete this topic RSV Immunization Patients Un raymond 20 months Aged Out No longer eligible b ased on patient's age to complete this topic Varicella Vaccines Aged Out No longer eligible based on patient's age to complete this topic
== END 2024-04-13 10:19 | disposition home or self-care (01) ==
PROVIDERS: PCP Internal Medicine; Visit Provider Internal Medicine
DX: Z00.00 Encounter for general adult medical examination without abnormal findings (principal); E78.5 Hyperlipidemia, unspecified; F20.1 Disorganized schizophrenia; Z12.11 Encounter for screening for malignant neoplasm of colon; L60.2 Onychogryphosis

== ENCOUNTER → 2024-04-13 09:30 | Outpatient (BNVA) | payer MEDICARE, MEDICAID, SELFPAY | PROVIDERS: PCP Internal Medicine; Visit Provider Internal Medicine | DX: Z00.01 Encounter for general adult medical examination with abnormal findings (principal); E78.5 Hyperlipidemia, unspecified; F20.1 Disorganized schizophrenia; L60.2 Onychogryphosis | CPT/HCPCS: 96127; 99396 ==

== ENCOUNTER 2024-04-15 07:57 | Outpatient (REF) | payer MEDICARE, MEDICAID, SELFPAY ==
--- OUTSIDE RECORDS SUMMARY | 2024-04-15 07:59 | XMS_ITS | Clinical Summary ---
Author Organization [facility] ity Address [address] [place] [address] Care Team Providers Care Aircraft Systems Technician Name Role Phone Unavailable Primary Care Provider [...]
[2024-04-15 11:09] LABS: Alanine Aminotransferase 17 U/L (0-40); Anion Gap 10 (12-20); Aspartate Amino Transferase 27 U/L (5-37); Blood Urea Nitrogen 12 mg/dL (9-16); Calcium 9.4 mg/dL (8.4-10.2); Carbon Dioxide 26 mmol/L (22-29); Chloride 103 mmol/L (96-108); Cholesterol 167 mg/dL (<200); Estimated Glomerular Filt Rate > 60; Glucose Fasting 87 mg/dL (60-99); HDL Cholesterol 38 mg/dL (>40); LDL Cholesterol Calculated 118 mg/dL (<100); Potassium 3.9 mmol/L (3.3-5.1); Sodium 135 mmol/L (135-145); Triglycerides 58 mg/dL (<150)
[2024-04-15 11:25] LABS: PSA,Total (Free>4and<10) 0.57 ng/mL (0.00-4.00)
== END 2024-04-15 07:58 | disposition home or self-care (01) ==
LOC: HO.HMGCLDS 07:57
PROVIDERS: PCP Internal Medicine; Visit Provider Internal Medicine
DX: Z00.01 Encounter for general adult medical examination with abnormal findings (principal); E78.5 Hyperlipidemia, unspecified; F20.1 Disorganized schizophrenia; Z12.5 Encounter for screening for malignant neoplasm of prostate
CPT/HCPCS: 36415; 80048; 80061; 84153; 84450; 84460

== ENCOUNTER 2024-08-02 13:41 | Outpatient (AMB) | payer MEDICARE, MEDICAID, SELFPAY ==
--- OUTSIDE RECORDS SUMMARY | 2024-08-02 13:54 | XMS_ITS | Patient Health Record ---
Author Organization [facility] Address [address] [place] [address] Care Team Providers Care Interpreter Deaf Name Role Phone Betsy WARD, Chantell Primary Care Provider Floyd Anton Jr Unavailable Allergies No Known Allergies Reason For Referral No Information Medications Medication SIG (Take, Route, Frequency, Duration) Notes Start Date End Date Status Multivitamin Adults - as directed Orally Active risperiDONE 2 MG TAKE 1 TABLET BY RONAK 3 TIMES A DAY NEEDED Oral for 26 Active cloNIDine HCl 0.1 MG Oral for 90 Active Colyte with Flavor Packs 240 GM As directed Orally Over the specified time. for 1 day(s) 09/02/2022 Active Hair Skin and Nails Formula Active Fish Oil Adult Gummies Active Immunizations Vaccine Route Administration Date Status Comme nts Flu vaccine no Preserv 3 and > Unknown 01/18/2014 Admin istered Problems Problem Type SNOMED Code ICD Code Onset Dates Problem Status W/U Status Risk Notes Problem [id number] Colon cancer screening (Z12.11) Active confirmed Problem [id number] Long-term curren t use of high risk medication other than anticoagulant (Z79.899) Active confirmed Plan Of Treatment Future Test Test Name Order Date COLONOSCOPY 06/14/2014 COLONOSCOPY 07/24/2022 Next [facility] Details Provider Name:Floyd gill Jr, 08/03/2024 11:20:00 AM, [address], [address], [place], [address], Insurance Providers Payer Name Payer Address Payer Phone Subscriber Number Group Number Insured Name Patient Relationship to Insured Coverage Start Date Coverage End Date MEDICARE OF [facility] [address] [place] [id number] [phone] [id number] MARISOL REAL Self - patient is the insured MEDICAID OF [facility] [address] [place] [address] [phone] [id number] MARISOL REAL Self - patient is the insured Medical (General) History Medical History History ICD Code schizophrenia hyperlipidemia moderate mental retardation Colonoscopy 08/13/14, poor prep, 5-10 year followup Surgical History Surgery Date(Month/Year)
--- NOTE | 2024-08-02 14:39 | MHC.OFFWIV ---
Intake Vital Signs 08/02/24 14:42 Height 5 ft 6 in Weight 144 lb BMI 23.2 BP 116/72 Blood Pressure Location Rt brachial Position Sitting Pulse 68 Pulse Source Pulse Oximeter Pulse Oximetry (%) 98 Oxygen Delivery Method Room Air Intake Visit Reasons: EP-both ear wax Intake Note: Patient here for bilat ear blockage. Patient Tobacco Use Status: Never used Tobacco Allergies No Known Allergies [No Known Allergies*] Allergy (Verified 08/02/24 14:46) Do you need a note to return to daycare/school/sports/work: No HPI HPI Comments History of Present Illness Details 59 y/o Male patient who presents to the walk in clinic with c/o B/L ear wax removal. [facility] Medical History (Updated 04/13/24 @ 10:21 by Chantell Meyer MD) Hypertrophic toenail Dyslipidemia Fungal toenail infection Schizophrenia, disorganized type Surgical History H/O colonoscopy No pertinent past surgical history Family History Mother Diabetes mellitus HTN (hypertension) Sister Thyroid disorder Social History Housing: House Alcohol intake: never Patient Tobacco Use Status: Never used Tobacco e-Cigarette/Vaping Use: Never Used service: No Current occupational status: employed Cognitive needs: No Hearing needs: No Vision needs: No Review of Systems Const All systems reviewed & are unremarkable except as noted in HPI and below Physical Exam Vital Signs: Last Vital Signs Pulse 68 08/02/24 14:42 BP 116/72 08/02/24 14:42 Pulse Ox 98 08/02/24 14:42 Oxygen Delivery Method Room Air 08/02/24 14:42 BMI result Body Mass Index 23.2 Const General: no acute distress Orientation/consciousness: patient oriented x3 Limitations: behavioral limitations HEENT Ears: external ears normal and TM abnormal obstructed by cerumen bilateral Neuro General: patient oriented x3 Office Procedures Cerumen Removal From which ear canal was the cerumen removed: bilateral Removal: irrigation Notes: patient tolerated procedure well [id number] Irrigation/Lavage Assessment & Plan Assessment & Plan (1) Impacted cerumen of both ears: Code(s): H61.23 - Impacted cerumen, bilateral Plan: Ordered Cerumen Irrigation - Patient tolerated the procedure well. TM clear and intact. Coding Level of Care Code Est Pt Level 4 (55701) Diagnoses Impacted cerumen of both ears H61.23 CPT Codes Office Procedure - CPT: 37837-Lfx Irrigation/Lavage ([id number]) Time Spent (min) 20
[2024-08-02 14:42] VITALS: BP 116/72; PULSE 68; O2SAT 98; BMI 23.2
== END 2024-08-02 15:10 | disposition home or self-care (01) ==
PROVIDERS: PCP Internal Medicine; Visit Provider Nurse Practitioner Family
DX: H61.23 Impacted cerumen, bilateral (principal)

== ENCOUNTER → 2024-08-02 13:41 | Outpatient (BNVA) | payer MEDICARE, MEDICAID, SELFPAY | PROVIDERS: PCP Internal Medicine; Visit Provider Nurse Practitioner Family | DX: H61.23 Impacted cerumen, bilateral (principal) | CPT/HCPCS: 69209; 99212 ==

== ENCOUNTER 2024-08-17 11:46 | Day surgery (SDC) | payer MEDICARE, MEDICAID, SELFPAY ==
--- OUTSIDE RECORDS SUMMARY | 2024-08-03 14:23 | XMS_ITS | Patient Health Record ---
Author Organization [facility] Address [address] [place] [address] Care Team Providers Care Occ Therapy Asst Name Role Phone Betsy WARD, Chantell Primary Care Provider Juan C Au Jr, Floyd Unavailable [phone] Allergies No Known Allergies Reason For Referral No Information Medications Medication SIG (Take, Route, Frequency, Duration) Notes Start Date End Date Status Hair Skin and Nails Formula Active Multivitamin Adults - as directed Orally Active Fish Oil Adult Gummies Active cloNIDine HCl 0.1 MG Oral for 90 Active risperiDONE 2 MG TAKE 1 TABLET BY RONAK TH 3 TIMES A DAY NEEDED Oral for 26 Active Immunizations Vaccine Route Administration Date Status Comme nts Flu vaccine no Preserv 3 and > Unknown 01/18/2014 Admin istered Influenza Unknown 11/25/2023 Administered Problems Problem Type SNOMED Code ICD Code Onset Dates Problem Status W/U Status Risk Notes Problem 917322713 Colon cancer screening (Z12.11) Active confirmed Problem 975560604 Long-term curren t use of high risk medication other than anticoagulant (Z79.899) Active confirmed Vital Signs Temperature 98.4 degrees Fahrenheit 08/03/2024 Blood pressure diastolic 01 mm Hg 08/03/2024 Height 66.5 in 08/03/2024 Blood pressure systolic 001 mm Hg 08/03/2024 Weight 142.6 lbs 08/03/2024 BMI 22.67 kg/m2 08/03/2024 Encounters Encounter Location Date Provider Diagnosis [facility] [address] [place] [address] 08/03/2024 Floyd Au Jr Long-term current use of high risk medication other than anticoagulant Z79.899 and Colon cancer screening Z12.11 Assessments Encounter Date Diagnosis (ICD Code) Assessment Notes Treatment Notes Treatment Clinical Notes Section Notes 08/03/2024 Colon cancer screening (ICD-10 - Z12.11) We discussed colonoscopy today. He understands risks and benefits and agrees to proceed. This will be scheduled at his convenience with a 2-day prep. He is advised to stop fish oil 1 week before the procedure. 08/03/2024 Long-term current use of high risk medication other than anticoagulant (ICD-10 - Z79.899) We discussed colonoscopy today. He understands risks and benefits and agrees to proceed. This will be scheduled at his convenience with a 2-day prep. He is advised to stop fish oil 1 week before the procedure. Plan Of Treatment Future Test Test Name Order Date COLONOSCOPY 06/14/2014 COLONOSCOPY 07/24/2022 COLONOSCOPY 08/03/2024 Next Appt Details Provider Name:Floyd gill , 08/17/2024 01:00:00 PM, [address] [place] [address] , [place], [place], [phone], Insurance Providers Payer Name Payer Address Payer Phone Subscriber Number Group Number Insured Name Patient Relationship to Insured Coverage Start Date Coverage End Date MEDICARE OF [place] [address] [place] [id number] MARISOL REAL Self - patient is the insured MEDICAID OF [facility] [address] [place] [address] [id number] MARISOL REAL Self - patient is the insured Medical (General) History Medical History History ICD Code schizophrenia hyperlipidemia moderate mental retardation Colonoscopy 08/29, nondiagnostic due to p oor prep, repeat with 2-day prep. Surgical History Surgery Date(Month/Year)
[2024-08-15 14:36] VITALS: BMI 22.7
--- NOTE | 2024-08-16 08:59 | HO.ANESPROP2 ---
HPI - Anesthesia Eval Consult details Narrative: 59yo M for Colonoscopy PMFSH Active Problems Active Problems: All Active Problems Hypertrophic toenail (Acute) Dyslipidemia (Acute) Fungal toenail infection (Acute) Schizophrenia, disorganized type (Acute) Past Medical History Medical History Hypertrophic toenail Dyslipidemia Fungal toenail infection Schizophrenia, disorganized type Family History Family History Mother Diabetes mellitus HTN (hypertension) Sister Thyroid disorder Surgical History Surgical History (Updated 08/15/24 @ 14:36 by Rabia Moss RN) H/O colonoscopy History of Problems with Anesthesia: No Social History Social History Housing: House Alcohol intake: never Patient Tobacco Use Status: Never used Tobacco e-Cigarette/Vaping Use: Never Used Use of substances other than those prescribed or required for medical reasons: No Have you been hit, kicked, punched, or otherwise hurt by someone within the past year? If so, by whom?: No Are you DNR?: No Advance Directives: No Advance Directives Information Provided: Yes service: No Current occupational status: employed Cognitive needs: No Hearing needs: No Vision needs: No Meds Allergies Allergy/AdvReac Type Severity Reaction Status Date / Time No Known Allergies (No Known Allergy Verified 08/17/24 12:05 Allergies*) Home Medications ?Medication ?Instructions ?Recorded ?Confirmed ?Last Taken ?Type clonidine HCl 0.1 mg tablet 0.2 mg PO QAM 12/14/19 08/17/24 08/17/24 08:30 History risperidone 1 mg tablet 1 mg PO BID 12/14/19 08/17/24 08/17/24 08:30 History clonidine HCl 0.1 mg tablet 0.1 mg PO BEDTIME 08/15/24 08/17/24 Unknown History Exam Height,Weight and Vital Signs: Height 5 ft 6.5 in Weight 64.682 kg Assessment and Plan Assessment Anesthesia Assessment: Chart Reviewed Final Anesthetic Review History of Problems with Anesthesia: No
[2024-08-17 12:20] VITALS: BMI 23.1
--- NOTE | 2024-08-17 12:22 | PC.NURSE ---
Patient's guardian states the patient drank 2-3 bottles of water this morning at 0700. Dr. Mejia made aware and is ok to proceed.
[2024-08-17 12:28] VITALS: BP 126/72; PULSE 89; RESP 17; TEMP 37; O2SAT 100
[2024-08-17] MEDS: Lactated Ringers 1,000 ML 100 ML IVCONT (12:29)
--- NOTE | 2024-08-17 12:48 | MHC.SHP ---
Pre-Procedural Eval Section A - 24 Hr Update-Section A only Date of Service: 08/17/24 The patient is an INPATIENT: No Changes since office visit: No Cold of Flu in the past 2 weeks, No New Medical Problems, No Changes in Medication and No Patient answered all questions The patient has been examined within 24 hours of the surgical procedure. The History & Physical has been completed within 30 days and I have reviewed it.: Yes Section B - Complete if H&P > 30 days Chief Complaint: screening Allergies: Allergies Allergy/AdvReac Type Severity Reaction Status Date / Time No Known Allergies Allergy Verified 08/17/24 12:05 [No Known Allergies*] Plan I have reviewed the history and physical and performed a pertinent physical examination on my patient. No changes have occurred unless specified. Time Spent With Patient Time: Total time managing care of this patient today ____ minutes.
[2024-08-17 14:10] VITALS: BP 123/69; PULSE 76; RESP 16; TEMP 36.7; O2SAT 99
[2024-08-17 14:25] VITALS: BP 118/73; PULSE 74; RESP 18; O2SAT 99
--- NOTE | 2024-08-17 21:51 | OP_ITS ---
DATE OF SERVICE: 08/17/2024 SURGEON: Floyd Au MD INDICATIONS: Colon cancer screening and incomplete examination at time of last colonoscopy in 2 years. This procedure is medically necessary due to limitations of his last exam. PREOPERATIVE DIAGNOSIS: POSTOPERATIVE DIAGNOSIS: PROCEDURE PERFORMED: Colonoscopy to the terminal ileum. ESTIMATED BLOOD LOSS: COMPLICATIONS: ANESTHESIA: Monitored anesthesia care. ASSISTANTS: SPECIMENS: DESCRIPTION OF PROCEDURE: A history and physical was performed. The risks and benefits of the procedure were explained to the patient. Informed consent was obtained. The patient was placed in the left lateral decubitus position. A digital rectal exam was performed and was found to be normal. The Olympus pediatric video colonoscope was introduced into the rectum and advanced to the cecum. The cecum was identified by transillumination, palpation, and identification of the ileocecal valve. Examination was performed. The scope was removed. He tolerated the procedure well and was returned to the recovery area in stable condition. FINDINGS: Limited examination of the terminal ileum was within normal limits. There was a large amount of liquid stool and some undigested food, which was washed and suctioned as best possible. This limited the sensitivity examination for detection of small polyps. This made the procedure difficult and extended. After extensive irrigation. The mucosa was adequately examined and no polyps were identified. Retroflexed examination was normal. IMPRESSION: Normal colonoscopy. RECOMMENDATION: 1. Follow up as needed. 2. Repeat colonoscopy is recommended in 10 years for average-risk individuals. MD FAUSTO Cornelius/KATIEL / [id number]
== END 2024-08-17 14:50 | disposition home or self-care (01) ==
PROVIDERS: PCP Internal Medicine; Visit Provider Internal Medicine Gastroenterology
PROC: 0DJD8ZZ Inspection of Lower Intestinal Tract, Via Natural or Artificial Opening Endoscopic (ICD-10-PCS; CPT 45378; principal; 2024-08-17 13:00)
DX: Z12.11 Encounter for screening for malignant neoplasm of colon (principal); F20.1 Disorganized schizophrenia; F71 Moderate intellectual disabilities; E78.5 Hyperlipidemia, unspecified; Z79.899 Other long term (current) drug therapy
CPT/HCPCS: G0121; J2003; J2704